=== PATIENT | female | born 1955 | race Caucasian/White ===

== ENCOUNTER 2017-10-22 09:50 | Outpatient (CLI) | payer OTHER | END 2017-10-22 09:56 | disposition home or self-care (01) | LOC: RAD 09:50 | DX: I10 Essential (primary) hypertension (principal); D64.89 Other specified anemias; D68.8 Other specified coagulation defects ==

== ENCOUNTER 2018-04-26 09:14 | Outpatient (CLI) | payer OTHER | END 2018-04-26 14:58 | disposition home or self-care (01) | LOC: TOM 09:14 | DX: R13.19 Other dysphagia (principal) | CPT/HCPCS: 70492; 74230; Q9965 ==

== ENCOUNTER 2018-05-09 08:16 | Outpatient (CLI) | payer OTHER | END 2018-05-09 15:27 | disposition home or self-care (01) | LOC: TOM 08:16 | DX: K56.600 Partial intestinal obstruction, unspecified as to cause (principal) ==

== ENCOUNTER 2018-06-15 07:07 | Outpatient (CLI) | payer OTHER | END 2018-06-15 07:17 | disposition home or self-care (01) | LOC: SONOGRAMA 07:07 | DX: N63.42 Unspecified lump in left breast, subareolar (principal); N60.11 Diffuse cystic mastopathy of right breast; N60.12 Diffuse cystic mastopathy of left breast ==

== ENCOUNTER 2018-06-29 08:13 | Outpatient (CLI) | payer OTHER | END 2018-06-29 08:17 | disposition home or self-care (01) | LOC: SONOGRAMA 08:13 | DX: D48.62 Neoplasm of uncertain behavior of left breast (principal) ==

== ENCOUNTER → 2018-09-21 | Day surgery (SDC) | payer OTHER ==
[~2018-09-21] MED LIST: AMBIEN10 MG PO; CLONAZEPAM0.5 M1 PO; COZAAR25 MG PO; LEVO PO; LEVOXYL50 MCG PO; ZOLOFT20 MG/1 ML PO
== END | disposition home or self-care (01) ==
LOC: ADM 09-17 08:00 → CIR.AMB 06:22
DX: D24.2 Benign neoplasm of left breast (principal)

== ENCOUNTER → 2019-07-18 | Outpatient (CLI) | payer OTHER | END | disposition home or self-care (01) | LOC: MRI 07-15 09:15 | DX: M54.5 Low back pain (principal) | CPT/HCPCS: 72148 ==

== ENCOUNTER 2020-02-12 09:58 | Outpatient (CLI) | payer OTHER | END 2020-02-12 10:12 | disposition home or self-care (01) | LOC: RAD 09:58 | PROVIDERS: ATTEND Internal Medicine | DX: M15.8 Other polyosteoarthritis (principal) ==

== ENCOUNTER 2020-03-17 08:00 | Outpatient (CLI) | payer OTHER | END 2020-03-17 08:07 | disposition home or self-care (01) | LOC: MAMO-SONO 08:00 | PROVIDERS: ATTEND Surgery | DX: N60.11 Diffuse cystic mastopathy of right breast (principal); N60.12 Diffuse cystic mastopathy of left breast ==

== ENCOUNTER 2020-09-17 04:17 | Outpatient (CLI) | payer OTHER | END 2020-09-17 04:18 | disposition home or self-care (01) | LOC: PPH VACUNA 04:17 | PROVIDERS: ATTEND Emergency Medicine Pediatric Emergency Medicine | DX: Z23 Encounter for immunization (principal) ==

== ENCOUNTER 2020-09-22 09:17 | Outpatient (CLI) | payer OTHER | END 2020-09-22 09:23 | disposition home or self-care (01) | LOC: NUCLEAR 09:17 | PROVIDERS: ATTEND Internal Medicine | DX: M85.89 Other specified disorders of bone density and structure, multiple sites (principal); M81.0 Age-related osteoporosis without current pathological fracture ==

== ENCOUNTER 2021-04-05 09:43 | Outpatient (CLI) | payer OTHER | END 2021-04-05 09:51 | disposition home or self-care (01) | LOC: MAMO-SONO 09:43 | PROVIDERS: ATTEND Internal Medicine | DX: N60.11 Diffuse cystic mastopathy of right breast (principal); N60.12 Diffuse cystic mastopathy of left breast; M51.17 Intervertebral disc disorders with radiculopathy, lumbosacral region; Z12.31 Encounter for screening mammogram for malignant neoplasm of breast ==

== ENCOUNTER → 2021-05-13 | Outpatient (CLI) | payer OTHER | END | disposition home or self-care (01) | LOC: PPH VACUNA 08:20 | PROVIDERS: ATTEND Emergency Medicine Pediatric Emergency Medicine | DX: Z23 Encounter for immunization (principal) ==

== ENCOUNTER 2021-11-03 07:56 | Outpatient (CLI) | payer OTHER | END 2021-11-03 07:57 | disposition home or self-care (01) | LOC: NUCLEAR 07:56 | PROVIDERS: ATTEND Internal Medicine | DX: I82.403 Acute embolism and thrombosis of unspecified deep veins of lower extremity, bilateral (principal) ==

== ENCOUNTER 2022-02-23 07:23 | Outpatient (CLI) | payer OTHER | END 2022-02-23 07:28 | disposition home or self-care (01) | LOC: SONOGRAMA 07:23 | PROVIDERS: ATTEND Internal Medicine | DX: R10.13 Epigastric pain (principal) ==

== ENCOUNTER 2022-08-11 07:10 | Outpatient (CLI) | payer OTHER | END 2022-08-11 07:20 | disposition home or self-care (01) | LOC: RAD 07:10 | PROVIDERS: ATTEND Internal Medicine | DX: R13.12 Dysphagia, oropharyngeal phase (principal) ==

== ENCOUNTER 2024-04-25 07:07 | Outpatient (CLI) | payer OTHER | END 2024-04-25 07:09 | disposition home or self-care (01) | LOC: TOM 07:07 | DX: R10.13 Epigastric pain (principal); K63.4 Enteroptosis; R19.4 Change in bowel habit | CPT/HCPCS: 74177; Q9965 ==

== ENCOUNTER 2024-08-02 06:43 | Day surgery (SDC) | payer OTHER ==
[2024-07-31 08:57] LABS: HEMATOCRIT 41.8 % (36.0-45.00); HEMOGLOBIN 14.5 g/dL (12.0-15.00); MEAN CELL VOLUME 82.9 fL (80.00-100.00); MEAN CORPUSCULAR HEMOGLOBIN 28.7 pg (27.00-32.0); MEAN CORPUSCULAR HGB CONC 34.6 g/dl (32.0-36.0); PLATELET COUNT 247 K/uL (150-450); RED BLOOD COUNT 5.04 M/uL (4.00-6.00); RED CELL DISTRIBUTION WIDTH 14.1 % (11.5-14.5)
[2024-07-31 08:57] LABS: PH,URINE 6.5 (5.0-8.0); URINE APPEARANCE Clear; URINE BILIRRUBIN Negative (NEGATIVE); URINE BLOOD Negative; URINE COLOR Yellow; URINE GLUCOSE Negative (NEGATIVE); URINE KETONE Negative (NEGATIVE); URINE LEUKOCYTE Negative; URINE NITRATE Negative; URINE PROTEIN Negative (NEGATIVE); URINE UROBILINOGEN 0.2 E.U./dl
[2024-07-31 08:58] LABS: URINE BACTERIA 182.2 uL (0.0-1933); URINE EPITHELIAL CELLS 5.8 uL (0.0-38.8); URINE RBC 4.1 uL (0.0-20.8); URINE WBC 3.7 uL (0.0-23.2)
[2024-07-31 09:17] LABS: INR 0.98; PARTIAL THROMBOPLASTIN TIME 25.5 SECONDS (22.0-34.0); PROTHROMBIN TIME 10.7 SECONDS (9.0-11.5)
[2024-07-31 09:54] LABS: ALBUMIN 3.6 gm/dL (3.4-5.0); BILIRUBIN TOTAL 0.3 mg/dL (0.3-1.2); CALCIUM 9.4 mg/dL (8.5-10.1); CREATININE SERUM 0.95 mg/dL (0.55-1.02); GFR 58.15; GLOBULINA 3.1 G/DL (2.4-3.5); POTASSIUM 3.11 mEq/L (3.5-5.1); TOTAL PROTEIN 6.7 gm/dL (6.4-8.2)
[2024-07-31 09:55] VITALS: BP 140/90
[~2024-08-02] VITALS: Ht 152.4 cm; Wt 86.2 kg
[~2024-08-02 06:43] MED LIST changes: +ESTAZOLAM2 MG PO; +HORIZANT300 MG PO; +MULTIPLE VITAM1 EAC2 PO; +PEPCID AC20 MG PO; +PROTONIX40 MG PO; +ROSUVASTATIN CA10 MG PO; +VENLAFAXINE HCL75 M2 PO
[2024-08-02] MEDS ORDERED: CEFAZOLIN SODIUM 1,000 MG VIAL IV ONE (13:30)
== END 2024-08-02 16:50 | disposition home or self-care (01) ==
LOC: CIR.AMB 06:43
PROVIDERS: ATTEND Surgery
DX: D48.61 Neoplasm of uncertain behavior of right breast (principal); I10 Essential (primary) hypertension; E03.8 Other specified hypothyroidism

== ENCOUNTER 2025-04-07 11:05 | Outpatient (CLI) | payer OTHER | END 2025-04-07 11:06 | disposition home or self-care (01) | LOC: NUCLEAR 11:05 | PROVIDERS: ATTEND Internal Medicine | DX: M81.0 Age-related osteoporosis without current pathological fracture (principal) ==

== ENCOUNTER 2025-04-07 11:43 | Outpatient (CLI) | payer OTHER | END 2025-04-07 11:45 | disposition home or self-care (01) | LOC: RAD 11:43 | DX: R06.00 Dyspnea, unspecified (principal) ==

== ENCOUNTER 2025-04-28 14:51 | Outpatient (CLI) | payer OTHER | END 2025-04-28 14:55 | disposition home or self-care (01) | LOC: TOM 14:51 | DX: R06.00 Dyspnea, unspecified (principal) ==

== ENCOUNTER 2025-06-19 07:12 | Outpatient (CLI) | payer OTHER | END 2025-06-19 16:10 | disposition home or self-care (01) | LOC: MRI 07:12 | DX: M54.13 Radiculopathy, cervicothoracic region (principal); M54.16 Radiculopathy, lumbar region; M54.51 Vertebrogenic low back pain; M54.50 Low back pain, unspecified | CPT/HCPCS: 72141; 72146; 72148 ==

== ENCOUNTER 2025-07-21 08:22 | Outpatient (CLI) | payer OTHER | END 2025-07-21 08:24 | disposition home or self-care (01) | LOC: SONOGRAMA 08:22 | PROVIDERS: ATTEND Radiology Diagnostic Radiology | DX: N28.1 Cyst of kidney, acquired (principal) ==